=== PATIENT | male | born 1960 | race Hispanic/Latino ===

== ENCOUNTER → 2022-08-14 | Outpatient (CLI) | payer OTHER | END | disposition home or self-care (01) | LOC: RESP 09:55 | PROVIDERS: ATTEND Internal Medicine Cardiovascular Disease | DX: R06.02 Shortness of breath (principal); R06.00 Dyspnea, unspecified | CPT/HCPCS: 94060; 94727; 94729 ==

== ENCOUNTER → 2022-09-11 | Outpatient (CLI) | payer OTHER | END | disposition home or self-care (01) | LOC: SHCH 13:54 → EDUNIT# 14:30 | PROVIDERS: ATTEND Internal Medicine Cardiovascular Disease | DX: R06.09 Other forms of dyspnea (principal); I10 Essential (primary) hypertension; E78.5 Hyperlipidemia, unspecified; E11.9 Type 2 diabetes mellitus without complications | CPT/HCPCS: 93306 ==

== ENCOUNTER → 2023-02-20 | Outpatient (CLI) | payer OTHER ==
[2023-02-20 11:19] LABS: ABG BASE EXCESS -1.4 mmol/L (-2.0-3.0); ABG HCO3 23.8 mmol/L (21.0-28.0); ABG OXYGEN SATURATION 93.5 % (95.0-99.0); ABG PCO2 42 mmHg (35-48); ABG PH 7.371 (7.35-7.450); PO2, ARTERIAL BG 69.3 mmHg (83.0-108.0); VENT MODE, BG RA (ROOM AIR)
== END | disposition home or self-care (01) ==
LOC: LAB 10:27
PROVIDERS: ATTEND Nurse Practitioner Family
DX: R06.89 Other abnormalities of breathing (principal)
CPT/HCPCS: 36600; 82803